=== PATIENT | female | born 1970 | race Caucasian/White ===

== ENCOUNTER 2016-11-07 02:07 | Emergency (ER) | payer OTHER ==
[~2016-11-07 02:07] MED LIST: NORCO 5/325 TAB1 TAB PO
[2016-11-07 03:29] LABS: BASO % 0.7 % (0-2); EOS % 4.2 % (0-7); EOSINOPHIL ABSOLUTE COUNT 0.2 tho/cmm (0.0-0.7); HCT-HEMATOCRIT 39.5 % (34.0-49.0); HGB-HEMOGLOBIN 13.1 gm/dl (12.0-15.5); LYMPH % 36.3 % (20-45); LYMPH ABSOLUTE COUNT 2.1 tho/cmm (0.8-4.5); MCHC MEAN CORPUSCULAR HGB CONC 33.2 % (32.0-36.0); MCV (MEAN CELL VOLUME) 87.6 fl (82.0-96.0); MEAN PLATELET VOLUME 10.3 cmc (9.4-12.4); MONO % 5.5 % (0-12); MONOCYTE ABSOLUTE COUNT 0.3 tho/cmm (0.0-1.2); NEUTROPHILS % 53.3 % (40-80); PLATELET COUNT 256 tho/cmm (150-450); RED BLOOD COUNT 4.51 mil/cmm (4.00-5.20); RED CELL DISTRIBUTION WIDTH 14.5 % (12.4-16.4); WHITE BLOOD COUNT 5.7 tho/cmm (4.0-10.0)
[2016-11-07 03:33] LABS: PREGNANCY-SERUM NEGATIVE (NEGATIVE)
[2016-11-07 03:39] LABS: ANION GAP 15 mmol/L (0-20); BLOOD UREA NITROGEN 15 mg/dl (6-24); CALCIUM 8.5 mg/dl (8.5-10.5); CARBON DIOXIDE-VENOUS 25 mmol/L (22-32); CHLORIDE 107 mmol/l (96-110); GLUCOSE 98 mg/dL (70-110); MAGNESIUM 1.8 mg/dl (1.3-2.6); POTASSIUM 3.7 mmol/L (3.7-5.1); SODIUM 143 mmol/L (135-145); eGFR VALUE FOR BLACK 79 mL/Min
[2016-11-07 03:43] LABS: TSH-THYROID STIMULATING HORM. 3.35 uIU/ml (0.40-3.80)
== END 2016-11-07 04:53 ==
LOC: EDMED 02:07
PROVIDERS: Emergency Medicine
DX: R25.1 Tremor, unspecified (principal); R42 Dizziness and giddiness
CPT/HCPCS: J2405